=== PATIENT | female | born 1985 | race Caucasian/White ===

== ENCOUNTER 2018-02-17 10:10 | Inpatient (IN) | payer OTHER ==
[~2018-02-17] VITALS: Ht 165 cm; Wt 74.0 kg
[~2018-02-17 10:10] MED LIST: DSS100 PO; IBUP-2071 PO; MORPHINE SULFATE 4 MG/ML SYRINGE IVP ONE; PREN1TAB80 PO
[2018-02-17] MEDS ORDERED: RINGERS SOLUTION,LACTATED 1,000 ML IV ONE (10:12)
[2018-02-17] MEDS ORDERED: CITRIC ACID/SODIUM CITRATE 30 ML SOLUTION UDCUP PO ONE (10:15)
[2018-02-17] MEDS ORDERED: METOCLOPRAMIDE HCL 5 MG/ML 2 ML VIAL IVP ONE (10:15)
[2018-02-17 10:35] VITALS: BP 111/71
[2018-02-17 10:55] LABS: BASOPHILS % (AUTO) 0.4 % (0.0-2.0); EOSINOPHILS % (AUTO) 1.2 % (1.0-6.0); HEMATOCRIT 35.1 % (36-46); MEAN CORPUSCULAR HEMOGLOBIN 29.5 pg (26.0-34.0); MEAN CORPUSCULAR HGB CONC 34.3 G/dL (31.0-37.0); MEAN CORPUSCULAR VOLUME 86 fL (80-100); MONOCYTES # (AUTO) 0.6 K/uL (0.1-1.0); NEUTROPHILS # (AUTO) 8.3 K/uL (1.8-7.7); NEUTROPHILS % (AUTO) 75.4 % (40.0-70.0); PLATELET COUNT (AUTO) 200 K/uL (150-450); RED BLOOD CELL COUNT(AUTO) 4.07 MIL/uL (4.00-5.20); RED CELL DISTRIBUTION WIDTH 13.7 % (11.5-14.5)
[2018-02-17] MEDS ORDERED: EPHEDrine SULFATE 50 MG/ML VIAL IM ONE (12:00)
[2018-02-17] MEDS ORDERED: OXYTOCIN 10 UNITS/ML VIAL IM ONE (12:00)
[2018-02-17] MEDS ORDERED: FentaNYL CITRATE-PF 100 MCG/2 ML VIAL ONE (12:27)
[2018-02-17] MEDS ORDERED: MORPHINE SULFATE/PF 0.5 MG/ML 10 ML AMP ONE (12:28)
[2018-02-17] MEDS ORDERED: ACETAMINOPHEN 1000 MG/ISO-OSM 100 ML IV ONE (12:28)
[2018-02-17] MEDS ORDERED: NALBUPHINE HCL 10 MG/ML VIAL IVP PRN ×3 (13:15)
[2018-02-17] MEDS ORDERED: FentaNYL CITRATE-PF 100 MCG/2 ML VIAL IVP PRN (13:15)
[2018-02-17] MEDS ORDERED: NALOXONE HCL 0.4 MG/ML VIAL IVP PRN (13:15)
[2018-02-17] MEDS ORDERED: DEXAMETHASONE SOD PHOS 4 MG/ML VIAL IVP PRN (13:15)
[2018-02-17] MEDS ORDERED: DiphenhydrAMINE HCL 50 MG/ML VIAL IM PRN (13:15)
[2018-02-17] MEDS ORDERED: DiphenhydrAMINE HCL 50 MG/ML VIAL IVP PRN ×2 (13:15)
[2018-02-17] MEDS ORDERED: ONDANSETRON HCL 4 MG/2 ML VIAL IVP PRN (13:15)
[2018-02-17] MEDS ORDERED: MORPHINE SULFATE 10 MG/ML SYRINGE IVP PRN (13:15)
[2018-02-17] MEDS ORDERED: ACETAMINOPHEN/CODEINE 300-30 MG TABLET PO PRN (13:45)
[2018-02-17] MEDS ORDERED: LANOLIN 7 GM OINTMENT TP PRN (13:45)
[2018-02-17] MEDS: DEXTROSE 5%-0.45% SODIUM CHL 1,000 ML IV SCH ×2 (17:00→21:00)
[2018-02-17] MEDS: ONDANSETRON HCL 4 MG/2 ML VIAL IVP PRN ×2 (17:11→20:59)
[2018-02-17] MEDS ORDERED: OXYGEN THERAPY IH SCH ×4 (20:00)
[2018-02-17] MEDS: ACETAMINOPHEN 1000 MG/ISO-OSM 100 ML IV SCH (21:00)
[2018-02-18] MEDS: ACETAMINOPHEN 1000 MG/ISO-OSM 100 ML IV SCH (05:13)
[2018-02-18] MEDS: DEXTROSE 5%-0.45% SODIUM CHL 1,000 ML IV SCH ×2 (05:14→07:54)
[2018-02-18] MEDS: IBUPROFEN 800 MG TABLET PO SCH ×3 (06:44→18:51)
[2018-02-18] MEDS: MAGNESIUM HYDROXIDE SUSPENSION 30 ML UDCUP PO SCH ×2 (07:54→20:51)
[2018-02-18] MEDS: ACETAMINOPHEN/CODEINE 300-30 MG TABLET PO PRN ×3 (12:48→20:52)
[2018-02-19] MEDS: ACETAMINOPHEN/CODEINE 300-30 MG TABLET PO PRN ×2 (00:28→06:26)
[2018-02-19] MEDS: IBUPROFEN 800 MG TABLET PO SCH ×4 (00:28→17:52)
[2018-02-19] MEDS: MAGNESIUM HYDROXIDE SUSPENSION 30 ML UDCUP PO SCH ×2 (12:00→21:14)
[2018-02-20] MEDS: IBUPROFEN 800 MG TABLET PO SCH ×3 (00:05→11:59)
[2018-02-20] MEDS: ACETAMINOPHEN/CODEINE 300-30 MG TABLET PO PRN ×2 (00:06→06:07)
[2018-02-20] MEDS: MAGNESIUM HYDROXIDE SUSPENSION 30 ML UDCUP PO SCH (09:50)
[2018-02-20] MEDS ORDERED: IBUP-2070 PO (10:56)
[2018-02-20] MEDS ORDERED: PERCT PO (10:58)
== END 2018-02-20 14:15 | disposition home or self-care (01) | DRG 766 ==
LOC: 4S 10:10 → PREINTOOBSV 03-04 10:16 → PREOBSVTOIN 03-04 10:17
PROVIDERS: ADMIT Obstetrics & Gynecology; ATTEND Obstetrics & Gynecology
PROC: 10D00Z1 Extraction of Products of Conception, Low, Open Approach (ICD-10-PCS; principal; 2018-02-17)
DX: O32.1XX0 Maternal care for breech presentation, not applicable or unspecified (principal); Z37.0 Single live birth; Z3A.39 39 weeks gestation of pregnancy
CPT/HCPCS: 86850; 86900; 86901; 87081; J0131; J0690; J2270; J2274; J2405; J2590; J2765; J3010; J3490; J7120